=== PATIENT | male | born 1980 | race Two or more races ===

== ENCOUNTER 2023-04-29 15:14 | Inpatient (IN) | payer OTHER ==
[~2023-04-29] VITALS: Ht 170.2 cm; Wt 79.5 kg
[2023-04-29 17:10] LABS: HEMATOCRIT 46.4 % (41-53); HEMOGLOBIN 16.4 g/dL (13.5-17.5); MEAN CORPUSCULAR HEMOGLOBIN 30.4 pg (26.0-34.0); MEAN CORPUSCULAR HGB CONC 35.4 G/dL (31.0-37.0); MEAN CORPUSCULAR VOLUME 86 fL (80-100); PLATELET COUNT (AUTO) 120 K/uL (150-450); WHITE BLOOD COUNT (AUTO) 8.6 K/uL (4.5-11.0)
[2023-04-29 17:13] LABS: INR 1.4 (0.9-1.1)
[2023-04-29 17:15] LABS: ANION GAP 5 mmol/L (8-16); CALCIUM, TOTAL 8.6 mg/dL (8.8-10.5); CARBON DIOXIDE 34 mmol/L (22-29); CHLORIDE 97 mmol/L (98-107); CREATININE 1.34 mg/dL (0.60-1.30); GLOMERULAR FILTR. RATE CALC 59 mL/min (>60); GLUCOSE,RANDOM 117 mg/dL (70-110); POTASSIUM 4.1 mmol/L (3.5-5.1); SODIUM SERUM 136 mmol/L (136-145); UREA NITROGEN, BLOOD 17 mg/dL (7-18)
[2023-04-29 17:16] LABS: COVID AG,FIA SOURCE NASAL SWAB
[2023-04-29 17:20] LABS: AMMONIA 21 umol/L (11-32); TROPONIN I-HIGH SENSITIVITY 4 ng/L (<76)
[2023-04-29 17:21] LABS: LACTIC ACID 1.4 mmol/L (0.4-2.0)
[2023-04-29 17:26] LABS: ALBUMIN 3.5 g/dL (3.4-5.0); ALKALINE PHOSPHATASE 180 U/L (46-116); BILIRUBIN,TOTAL 11.4 mg/dL (0.1-1.0); LIPASE 36 U/L (16-77); TOTAL PROTEIN, SERUM 7.3 g/dL (6.4-8.2)
[2023-04-29] MEDS ORDERED: ONDANSETRON HCL 4 MG/2 ML VIAL IVP PRN (17:30)
[2023-04-29 17:43] LABS: ALANINE AMINOTRANSFERASE 5904 U/L (12-78); ASPARTATE AMINOTRANSFERASE 2459 U/L (15-37)
[2023-04-29 17:52] LABS: IRON, SERUM 148 mcg/dL (50-175); TOTAL IRON BINDING CAPACITY 308 mcg/dL (250-450)
[2023-04-29 18:06] LABS: SARS-COV2 (COVID) ANTIGEN,FIA Negative (Negative)
[2023-04-29 18:24] LABS: BAND NEUTROPHILS % (MANUAL) 4 % (0-5); EOSINOPHILS % (MANUAL) 1 % (1-6); LYMPHOCYTES % (MANUAL) 26 % (22-44); MONOCYTES % (MANUAL) 4 % (2-9); REACTIVE LYMPHOCYTES 50 % (0-0); SEGMENTED NEUTROPHILS % 15 % (40-70); TOTAL CELLS COUNTED 100
[2023-04-29 19:40] VITALS: BP 111/71; PULSE 73; RESP 20; TEMP 98.7
[2023-04-29] MEDS: DOCUSATE SODIUM 100 MG CAPSULE PO SCH (21:00)
[2023-04-29] MEDS ORDERED: INFLUENZA VIRUS VACCINE QVS 2023-24 (6MO+)/PF 60 MCG/0.5 ML SYRINGE IM. ONE (22:45)
[2023-04-30 04:44] VITALS: BP 113/70; PULSE 68; RESP 18; TEMP 98.1
[2023-04-30 07:54] VITALS: BP 103/68; PULSE 60; RESP 18; TEMP 98.2
[2023-04-30 08:06] LABS: HEPATITIS A ANTIBODY IGM Negative (Negative); HEPATITIS B CORE IGM Negative (Negative)
[2023-04-30] MEDS: DOCUSATE SODIUM 100 MG CAPSULE PO SCH ×2 (08:26→20:58)
[2023-04-30] MEDS: PANTOPRAZOLE SODIUM 40 MG DR TABLET PO SCH (08:26)
[2023-04-30 08:35] LABS: HEMATOCRIT 42.1 % (41-53); HEMOGLOBIN 14.8 g/dL (13.5-17.5); MEAN CORPUSCULAR HEMOGLOBIN 30.1 pg (26.0-34.0); MEAN CORPUSCULAR VOLUME 86 fL (80-100); PLATELET COUNT (AUTO) 119 K/uL (150-450); RED CELL DISTRIBUTION WIDTH 12.8 % (11.5-14.5); WHITE BLOOD COUNT (AUTO) 9.5 K/uL (4.5-11.0)
[2023-04-30 08:46] LABS: INR 1.3 (0.9-1.1)
[2023-04-30 09:01] LABS: ALBUMIN 3.1 g/dL (3.4-5.0); ALKALINE PHOSPHATASE 171 U/L (46-116); ANION GAP 8 mmol/L (8-16); BILIRUBIN,TOTAL 8.7 mg/dL (0.1-1.0); CALCIUM, TOTAL 8.3 mg/dL (8.8-10.5); CARBON DIOXIDE 30 mmol/L (22-29); CHLORIDE 98 mmol/L (98-107); CREATININE 1.26 mg/dL (0.60-1.30); GLOMERULAR FILTR. RATE CALC > 60 mL/min (>60); GLUCOSE,RANDOM 111 mg/dL (70-110); LIPASE 27 U/L (16-77); POTASSIUM 3.8 mmol/L (3.5-5.1); SODIUM SERUM 136 mmol/L (136-145); TOTAL PROTEIN, SERUM 6.5 g/dL (6.4-8.2); UREA NITROGEN, BLOOD 16 mg/dL (7-18)
[2023-04-30 09:24] LABS: ASPARTATE AMINOTRANSFERASE 1369 U/L (15-37)
[2023-04-30 09:28] LABS: BAND NEUTROPHILS % (MANUAL) 2 % (0-5); EOSINOPHILS % (MANUAL) 1 % (1-6); LYMPHOCYTES % (MANUAL) 25 % (22-44); MONOCYTES % (MANUAL) 6 % (2-9); REACTIVE LYMPHOCYTES 53 % (0-0); SEGMENTED NEUTROPHILS % 13 % (40-70); TOTAL CELLS COUNTED 100
[2023-04-30 10:32] LABS: ALANINE AMINOTRANSFERASE 4208 U/L (12-78)
[2023-04-30 15:02] VITALS: BP 110/72; PULSE 64; RESP 18; TEMP 98.5
[2023-04-30 19:35] VITALS: BP 108/66; PULSE 60; RESP 18; TEMP 98.4
[2023-04-30 22:27] LABS: APPEARANCE,URINE CLEAR (CLEAR); COLOR,URINE DARK YELLOW (YELLOW); GLUCOSE, URINE (UA) NEGATIVE (NEGATIVE); KETONES,URINE NEGATIVE (NEGATIVE); LEUKOCYTE ESTERASE ,URINE NEGATIVE (NEGATIVE); NITRATE,URINE NEGATIVE (NEGATIVE); OCCULT BLOOD,URINE NEGATIVE (NEGATIVE); PH,URINE 5.5 (5.0-8.0); PROTEIN,URINE TRACE mg/dL (NEGATIVE); SPECIFIC GRAVITIY, URINE 1.024 (1.003-1.030)
[2023-04-30 22:32] LABS: BILIRUBIN,URINE MODERATE (NEGATIVE)
[2023-04-30 22:49] LABS: BACTERIA,URINE None Seen /HPF (None Seen); RBC,URINE None Seen /HPF (0-2)
[2023-04-30 22:50] LABS: WBC,URINE 0-2 /HPF (0-5)
[2023-05-01 04:56] VITALS: BP 107/64; PULSE 64; RESP 18; TEMP 97.9
[2023-05-01 07:13] LABS: INR 1.1 (0.9-1.1); PROTHROMBIN TIME 11.5 SEC (9.4-11.6)
[2023-05-01 07:37] LABS: ALBUMIN 2.8 g/dL (3.4-5.0); BILIRUBIN,TOTAL 5.6 mg/dL (0.1-1.0); CALCIUM, TOTAL 8.2 mg/dL (8.8-10.5); CREATININE 1.35 mg/dL (0.60-1.30); POTASSIUM 3.7 mmol/L (3.5-5.1); TOTAL PROTEIN, SERUM 6.5 g/dL (6.4-8.2)
[2023-05-01 08:06] VITALS: BP 104/67; PULSE 60; RESP 18; TEMP 97.8
[2023-05-01] MEDS: DOCUSATE SODIUM 100 MG CAPSULE PO SCH ×2 (08:39→20:32)
[2023-05-01] MEDS: PANTOPRAZOLE SODIUM 40 MG DR TABLET PO SCH (08:39)
[2023-05-01] MEDS: FOLIC ACID 1 MG TABLET PO SCH (08:39)
[2023-05-01] MEDS: THIAMINE 100 MG TABLET PO SCH (08:39)
[2023-05-01 15:19] LABS: ALCOHOL, URINE DRUG SCREEN NEGATIVE (NEGATIVE); AMPHET/METH SCREEN,URINE NEGATIVE (NEGATIVE); BARBITURATE SCREEN, URINE NEGATIVE (NEGATIVE); BENZODIAZEPINES SCREEN,URINE NEGATIVE (NEGATIVE); CANNABINOID SCREEN,URINE NEGATIVE (NEGATIVE); COCAINE SCREEN,URINE NEGATIVE (NEGATIVE); METHADONE SCREEN, URINE NEGATIVE (NEGATIVE); OPIATE SCREEN,URINE NEGATIVE (NEGATIVE); PHENCYCLIDINE SCREEN,URINE NEGATIVE (NEGATIVE)
[2023-05-01 16:09] VITALS: BP 115/70; PULSE 62; RESP 18; TEMP 98
[2023-05-01 19:40] VITALS: BP 107/68; PULSE 64; RESP 18; TEMP 98.2
[2023-05-02 05:47] VITALS: BP 106/70; PULSE 57; RESP 18; TEMP 97.7
[2023-05-02] MEDS: FOLIC ACID 1 MG TABLET PO SCH (08:11)
[2023-05-02] MEDS: THIAMINE 100 MG TABLET PO SCH (08:11)
[2023-05-02] MEDS: PANTOPRAZOLE SODIUM 40 MG DR TABLET PO SCH (08:11)
[2023-05-02] MEDS: DOCUSATE SODIUM 100 MG CAPSULE PO SCH ×2 (08:11→19:48)
[2023-05-02 08:28] LABS: ALANINE AMINOTRANSFERASE 2151 U/L (12-78); ALBUMIN 2.9 g/dL (3.4-5.0); ALKALINE PHOSPHATASE 164 U/L (46-116); ANION GAP 4 mmol/L (8-16); ASPARTATE AMINOTRANSFERASE 350 U/L (15-37); BILIRUBIN,TOTAL 3.5 mg/dL (0.1-1.0); CALCIUM, TOTAL 8.4 mg/dL (8.8-10.5); CARBON DIOXIDE 31 mmol/L (22-29); CHLORIDE 103 mmol/L (98-107); CREATININE 1.24 mg/dL (0.60-1.30); GLOMERULAR FILTR. RATE CALC > 60 mL/min (>60); GLUCOSE,RANDOM 101 mg/dL (70-110); POTASSIUM 4.3 mmol/L (3.5-5.1); SODIUM SERUM 138 mmol/L (136-145); TOTAL PROTEIN, SERUM 6.6 g/dL (6.4-8.2); UREA NITROGEN, BLOOD 13 mg/dL (7-18)
[2023-05-02 08:56] VITALS: BP 104/70; PULSE 56; RESP 19; TEMP 97.6
[2023-05-02 17:25] VITALS: BP 101/66; PULSE 60; RESP 18; TEMP 98.3
[2023-05-02 18:06] LABS: HEPATITIS C AB (EIA) Reactive (Non Reactive)
[2023-05-02 19:45] VITALS: BP 109/66; PULSE 63; RESP 20; TEMP 98
[2023-05-03 04:15] VITALS: BP 122/75; PULSE 64; RESP 20; TEMP 97.6
[2023-05-03 07:12] LABS: ALANINE AMINOTRANSFERASE 1616 U/L (12-78); ALKALINE PHOSPHATASE 156 U/L (46-116); ANION GAP 3 mmol/L (8-16); ASPARTATE AMINOTRANSFERASE 198 U/L (15-37); BILIRUBIN,TOTAL 2.6 mg/dL (0.1-1.0); CALCIUM, TOTAL 8.5 mg/dL (8.8-10.5); CARBON DIOXIDE 32 mmol/L (22-29); CHLORIDE 103 mmol/L (98-107); CREATININE 1.22 mg/dL (0.60-1.30); GLOMERULAR FILTR. RATE CALC > 60 mL/min (>60); GLUCOSE,RANDOM 99 mg/dL (70-110); POTASSIUM 4.4 mmol/L (3.5-5.1); SODIUM SERUM 138 mmol/L (136-145); TOTAL PROTEIN, SERUM 6.8 g/dL (6.4-8.2); UREA NITROGEN, BLOOD 16 mg/dL (7-18)
[2023-05-03] MEDS: PANTOPRAZOLE SODIUM 40 MG DR TABLET PO SCH (08:09)
[2023-05-03] MEDS: DOCUSATE SODIUM 100 MG CAPSULE PO SCH (08:09)
[2023-05-03] MEDS: THIAMINE 100 MG TABLET PO SCH (08:09)
[2023-05-03] MEDS: FOLIC ACID 1 MG TABLET PO SCH (08:09)
[2023-05-03 08:16] VITALS: BP 104/62; PULSE 50; RESP 20; TEMP 97.7
== END 2023-05-03 17:00 | DRG 442 ==
LOC: EMS 15:14 → 6S 17:04
PROVIDERS: ADMIT Internal Medicine; ATTEND Internal Medicine
DX: B17.10 Acute hepatitis C without hepatic coma (principal); D68.9 Coagulation defect, unspecified; R17 Unspecified jaundice; S36.118A Other injury of liver, initial encounter; F11.10 Opioid abuse, uncomplicated; F10.20 Alcohol dependence, uncomplicated; F32.A Depression, unspecified; X58.XXXA Exposure to other specified factors, initial encounter; Z20.822 Contact with and (suspected) exposure to COVID-19; Z88.1 Allergy status to other antibiotic agents; Y93.89 Activity, other specified; Y92.89 Other specified places as the place of occurrence of the external cause; Y99.8 Other external cause status
CPT/HCPCS: 76700; 80053; 80074; 80307; 81001; 81003; 82140; 82390; 83516; 83540; 83550; 83605; 83690; 83735; 84484; 85025; 85610; 86038; 87040; 87522; 93005; 99285; G0481